=== PATIENT | male | born 1935 | race Caucasian/White ===

== ENCOUNTER 2018-07-02 04:27 | Inpatient (IN) | payer MEDICARE ==
[~2018-07-02] VITALS: Ht 167.6 cm; Wt 78.0 kg
[2018-07-02] MEDS: MORPHINE SULFATE INJ 2 MG/ML DISP.SYRIN IV ONE ×2 (01:15→05:15)
--- NOTE | 2018-07-02 04:30 | NUR ---
IV INITIATED LEFT AC 18G. LABS DRAWN FROM SITE. INTACT AND PATENT. IV PLACED ON SALINE LOCK.
--- NOTE | 2018-07-02 04:30 | NUR ---
PT BIBRA COMPLAINING OF ABDOMINAL PAIN X1 HOUR. PT C/O NAUSEA, DENIES VOMITTING OR DIARRHEA. PT DENIES SOB, CHEST PAIN. PT AAOX4. SKIN WARM AND INTACT, RESPIRATIONS EVEN AND UNLABORED. NO ACUTE DISTRESS NOTED AT THIS TIME. PT PLACED ON CONTINUOUS MONITORING. WAITING MD EVALUATION
--- NOTE | 2018-07-02 05:03 | NUR ---
MD AT BEDSIDE FOR EVALUATION
--- NOTE | 2018-07-02 05:09 | NUR ---
AT BEDSIDE WITH ULTRASOUND
--- NOTE | 2018-07-02 05:10 | NUR ---
UNABLE TO OBTAIN URINE SAMPLE AT THIS TIME, MD MCDUFFIE
[2018-07-02] MEDS ORDERED: MORPHINE SULFATE INJ 4 MG/ML DISP.SYRIN ONE ×2 (05:11→06:35)
[2018-07-02] MEDS ORDERED: ONDANSETRON HCL/PF 4 MG/2 ML VIAL ONE (05:11)
[2018-07-02 05:19] LABS: BASOPHILS % (AUTO) 0.4 % (0.0-2.0); EOSINOPHILS % (AUTO) 3.3 % (0.0-6.0); HEMATOCRIT 41 % (39-51); HEMOGLOBIN 13.3 g/dL (13.5-17.5); LYMPHOCYTES # (AUTO) 2.1 /CMM (0.8-4.8); LYMPHOCYTES % (AUTO) 20.8 % (20.0-44.0); MEAN CORPUSCULAR HGB CONC 33 g/dl (31.0-36.0); MEAN CORPUSCULAR VOLUME 92 fL (80-96); MONOCYTES # (AUTO) 0.9 /CMM (0.1-1.30); MONOCYTES % (AUTO) 9.2 % (2.0-12.0); NEUTROPHILS # (AUTO) 6.8 /CMM (1.8-8.9); NEUTROPHILS % (AUTO) 66.3 % (43.0-81.0); PLATELET COUNT (AUTO) 278 /CMM (150-450); RED BLOOD CELL COUNT(AUTO) 4.41 MIL/uL (4.5-6.0); WHITE BLOOD COUNT (AUTO) 10.2 K/uL (4.3-11.0)
[2018-07-02] MEDS ORDERED: IV NS 0.9% 250 ML IV ONE (05:21)
[2018-07-02] MEDS ORDERED: IOHEXOL-300 100 ML VIAL IV ONE (05:21)
[2018-07-02] MEDS ORDERED: CT SWABBABLE VALVE TRANS SET 1 EA INFUS.SET MC ONE (05:21)
[2018-07-02] MEDS ORDERED: IV NS 0.9% 500 ML BAG IV ONE (05:30)
[2018-07-02] MEDS ORDERED: ONDANSETRON HCL/PF - ER 4 MG/2 ML VIAL IV ONE (05:30)
[2018-07-02 05:35] LABS: ALANINE AMINOTRANSFERASE 28 U/L (12-78); ALBUMIN 3.5 g/dL (3.4-5.0); ALKALINE PHOSPHATASE 98 U/L (46-116); ASPARTATE AMINOTRANSFERASE 19 U/L (15-37); BILIRUBIN,DIRECT 0.1 mg/dL (0.0-0.2); BILIRUBIN,TOTAL 0.4 mg/dL (0.2-1.0); CALCIUM, SERUM 8.8 mg/dL (8.5-10.1); CARBON DIOXIDE 25 mmol/L (21-32); CHLORIDE 107 mmol/L (98-107); CREATININE 1.4 mg/dL (0.6-1.3); GLUCOSE 123 mg/dL (74-106); LIPASE 122 U/L (73-393); POTASSIUM 3.7 mmol/L (3.5-5.1); SODIUM SERUM 142 mmol/L (136-145); TOTAL PROTEIN, SERUM 6.5 g/dL (6.4-8.2); UREA NITROGEN, BLOOD 27 mg/dL (7-18)
[2018-07-02 05:36] LABS: TROPONIN I < 0.017 ng/mL (0.00-0.056)
--- NOTE | 2018-07-02 05:45 | NUR ---
MD AWARE OF BUN AND CREATININE RESULTS. CALLED RADIOLOGY TO BRING PT TO CT
--- NOTE | 2018-07-02 05:50 | NUR ---
PT BROUGHT BY RADIOLOGY FOR CT
--- NOTE | 2018-07-02 06:04 | NUR ---
PT RETURNED FROM CT
[2018-07-02] MEDS ORDERED: MORPHINE SULFATE INJ 2 MG/ML DISP.SYRIN IV ONE (06:30)
--- NOTE | 2018-07-02 06:30 | NUR ---
URINE COLLECTED. CALLED LAB FOR LICENSED PHYSICAL THERAPIST
[2018-07-02 06:42] LABS: APPEARANCE,URINE CLEAR (CLEAR); BILIRUBIN,URINE NEGATIVE (NEGATIVE); BLOOD, URINE TRACE-INTA Ery/uL (NEGATIVE); COLOR,URINE YELLOW (YELLOW); KETONES,URINE NEGATIVE (NEGATIVE); LEUKOCYTE ESTERASE ,URINE NEGATIVE (NEGATIVE); NITRITE, URINE NEGATIVE (NEGATIVE); PROTEIN,URINE NEGATIVE (NEGATIVE); UGLUCOSE NEGATIVE (NEGATIVE); UROBILINOGEN,URINE 0.2 EU/dL (0.2)
[2018-07-02 06:50] LABS: BACTERIA,URINE Rare /HPF (None Seen); SQUAMOUS EPITHELIAL CELL,UR Rare /HPF (None Seen); WBC,URINE 0-2 /HPF (0-3)
[2018-07-02] MEDS ORDERED: PIPERACILLIN /TAZOBACTAM 3.375 G in IV D5W 50 ML IV ONE (07:30)
[2018-07-02] MEDS ORDERED: ATOR40TA PO (07:37)
[2018-07-02] MEDS ORDERED: DILT240T12 PO (07:37)
[2018-07-02] MEDS ORDERED: TERA5CAP4 PO (07:37)
[2018-07-02] MEDS ORDERED: OLME20TA13 PO (07:37)
--- NOTE | 2018-07-02 07:40 | NUR ---
Updated with plan of care. Awaiting bed assignment. Family at bedside
[2018-07-02] MEDS ORDERED: ASPI-1169 PO (07:50)
--- NOTE | 2018-07-02 08:30 | NUR ---
Pt going to [phone]. Pt and daughter (She) made aware. NKE/Hand off to primary RN-Minor. Transfer to floor per kerrie by YULISSA Parker in stable condition
[2018-07-02] MEDS ORDERED: IV NS 0.9% 1,000 ML IV PRN (08:57)
[2018-07-02] MEDS ORDERED: ACETAMINOPHEN 325 MG TABLET PO PRN (09:00)
[2018-07-02] MEDS ORDERED: ASPIRIN 81 MG TAB.CHEW PO SCH (09:00)
[2018-07-02] MEDS ORDERED: ONDANSETRON HCL/PF 4 MG/2 ML VIAL IVP PRN (09:00)
[2018-07-02] MEDS ORDERED: MAGNESIUM HYDROXIDE 30 ML UDC PO PRN (09:00)
[2018-07-02] MEDS ORDERED: ZOLPIDEM TARTRATE 5 MG TABLET PO PRN (09:00)
[2018-07-02] MEDS ORDERED: Z GUARD REMEDY 2 OZ OINT TP PRN (09:00)
[2018-07-02] MEDS ORDERED: MAG HYDROX/AL HYDROX/SIMETH 30 ML UDC PO PRN (09:00)
[2018-07-02] MEDS ORDERED: MORPHINE SULFATE INJ 2 MG/ML DISP.SYRIN IV PRN (09:00)
[2018-07-02] MEDS ORDERED: MORPHINE SULFATE INJ 4 MG/ML DISP.SYRIN IV ONE (09:30)
--- NOTE | 2018-07-02 09:46 | NUR ---
MS RN NOTES PATIENT SEEN AND EXAMINED BY DR. SARKAR. WITH NEW ORDER FOR STAT HIDA SCAN AND MORPHINE SULFATE 4MG IV X 1 DOSE NOW. VERIFIED INFORMED CONSENT OBTAINED BY MD FROM PATIENT. ORDERS NOTED AND CARRIED OUT. NUCLEAR MEDICINE AWARE. PHARMACY MADE AWARE. WILL CONTINUE TO MONITOR
--- NOTE | 2018-07-02 10:06 | NUR ---
MS RN NOTES PATIENT WITH C/O NAUSEA. NO VOMITING PRESENT. REVIEWED PREVIOUS MEDICATIONS GIVEN AT ER. ZOFRAN IV LAST GIVEN AT 0515. PATIENT WITH ORDER FROM DR. WELLS FOR ZOFRAN 4MG IV Q6 PRN. DR. WELLS PRESENT AT UNIT AND MADE AWARE THAT LAST ZOFRAN IV GIVEN [address] WELLS GAVE OK TO ADMINISTER ZOFRAN 4MG IV NOW. MEDICATION ADMINISTERED ORDERED. WILL CONTINUE TO MONITOR
--- NOTE | 2018-07-02 10:08 | NUR ---
MS RN NOTES PATIENT ADMITTED TO UNIT. REPORT RECEIVED FROM RONNIE FONG. PATIENT ARRIVED AT UNIT VIA GURNEY, ACCOMPANIED BY DAUGHTER JOCELIN. PATIETN AWAKE, ALERT AND ORIENTED X 4. VERBALLY RESPONSIVE AND RESPONDS TO VERBAL AND TACTILE STIMULI. BREATHING EVEN AND UNLABORED. NO SOB OR ACUTE DISTRESS NOTED. PATIENT UNDER MEDICAL SUPERVISION OF DR. WELLS. PRESENT AT UNIT AND AWARE OF PATIENT ARRIVAL. PATIENT AND DAUGHTER INTRODUCED AND ORIENTED TO STAFF, NURSING STAFF, MEAL TIMES AND MENU SYSTEM, CALL LIGHT SYSTEM. WILL CONTINUE TO MONITOR. BED LOCKED AND IN LOW POSITION. BILATERAL UPPER SIDE RAILS UP AND LOCKED. CALL LIGHT WITHIN EASY REACH
[2018-07-02] MEDS: IV NS 0.9% 1,000 ML IV PRN (11:23)
[2018-07-02] MEDS ORDERED: PIPERACILLIN /TAZOBACTAM 4.5 G in IV D5W 50 ML IV SCH (12:00)
[2018-07-02] MEDS: PIPERACILLIN /TAZOBACTAM 2.25 G in IV D5W 50 ML IV SCH ×3 (12:06→23:15)
[2018-07-02] MEDS: LOSARTAN POTASSIUM 50 MG TABLET PO SCH (12:07)
[2018-07-02] MEDS: DILTIAZEM HCL CD 240 MG PO SCH (12:07)
[2018-07-02] MEDS: ENOXAPARIN SODIUM 40 MG/0.4 ML DISP.SYRIN SQ SCH (12:08)
[2018-07-02 16:00] VITALS: BP 163/86
--- NOTE | 2018-07-02 16:07 | NUR ---
KARI ; HIDA SCAN WAS COMPLETED:TECH:RB.
[2018-07-02] MEDS ORDERED: CEFTRIAXONE 1 G VIAL ONE (18:29)
--- NOTE | 2018-07-02 19:15 | NUR ---
MS RN NOTES PATIENT RESTING INSIDE ROOM. AWAKE, ALERT AND ORIENTED. VERBALLY RESPONSIVE AND RESPONDS TO VERBAL AND TACTILE STIMULI. BREATHING EVEN AND UNLABORED. NO SOB OR ACUTE DISTRESS NOTED. DENIES ANY PAIN OR DISCOMFORT. IV INTACT AND PATENT. ENDORSED TO INCOMING SHIFT FOR CALIN. BED LOCKED AND IN LOW POSITION. BILATERAL UPPER SIDE RAILS UP AND LOCKED. CALL LIGHT WITHIN EASY REACH
--- NOTE | 2018-07-02 19:30 | NUR ---
RECEIVED PATIENT IN BED AWAKE, AO X, 3; ABLE TO MAKE NEEDS KNOWN. NO ACUTE DISTRESS NOTED. MONITORED FOR PAIN. IV SITE PATENT, INTACT; IVF INFUSING ORDERED. SAFETY REMINDERS GIVEN. ON LOW BED WITH BILATERAL UPPER SIDE RAILS UP. CALL SCHMIDT WITHIN EASY REACH. WILL CONTINUE TO MONITOR.
[2018-07-02 19:35] LABS: IRON, SERUM 59 ug/dl (50-175); TOTAL IRON BINDING CAPACITY 288 ug/dl (250-450)
[2018-07-02 19:49] LABS: FERRITIN 49 ng/mL (8-388)
[2018-07-02 20:00] VITALS: BP 144/88
[2018-07-02] MEDS ORDERED: NA PHOS,M-B/NA PHOS,DI-BA 1 EA ENEMA RC PRN (20:30)
[2018-07-02] MEDS: PANTOPRAZOLE 40 MG VIAL IV SCH (21:06)
[2018-07-02] MEDS: POLYETHYLENE GLYCOL 3350 17 GM POWD.PACK PO SCH (21:09)
[2018-07-02] MEDS: HYDROCODONE/APAP 10/325MG 1 EA TABLET PO PRN (21:17)
[2018-07-02 21:28] LABS: BILIRUBIN,DIRECT 0.1 mg/dL (0.0-0.2); BILIRUBIN,TOTAL 0.5 mg/dL (0.2-1.0)
[2018-07-02] MEDS ORDERED: ATORVASTATIN 40 MG TABLET PO SCH (22:00)
[2018-07-03] VITALS (12 sets, daily range): BP systolic 104–154; BP diastolic 56–83
[2018-07-03] MEDS: IV NS 0.9% 1,000 ML IV PRN (00:49)
[2018-07-03] MEDS: PIPERACILLIN /TAZOBACTAM 2.25 G in IV D5W 50 ML IV SCH ×3 (05:21→18:47)
--- NOTE | 2018-07-03 06:13 | NUR ---
PATIENT AWAKE, SITTING UP IN BED. RESPIRATIONS EVEN. PATIENT JUST FINISHED TAKING A SHOWER INDEPENDENTLY. RETORT UNLOADER WAITED OUTSIDE OF DOOR FOR SAFETY. DUE MEDS GIVEN WITH NO ASE NOTED. NEEDS ATTENDED. SAFETY PRECAUTIONS AND COMFORT MEASURES IN PLACE. WILL GIVE REPORT TO DAY SHIFT FOR CONTINUITY OF CARE.
--- NOTE | 2018-07-03 06:16 | NUR ---
PATIENT ASLEEP, EASILY AROUSABLE. RESPIRATIONS EVEN. NO SIGNS OF PAIN NOTED. DUE MED GIVEN WITH NO ASE NOTED. NEEDS ATTENDED. KEPT CLEAN, DRY, AND COMFORTABLE. SAFETY PRECAUTIONS AND COMFORT MEASURES IN PLACE. WILL GIVE REPORT TO DAY SHIFT FOR CONTINUITY OF CARE. Addendum: 07/03/18 at 0617 by NAKLU LOBATO RN WRONG PATIENT; DISREGARD
--- NOTE | 2018-07-03 07:20 | NUR ---
MS/RN OPENING NOTE PATIENT IS RECEIVED IN BED AWAKE. ALERT AND ORIENTED X3. IN ROOM AIR AND DENIES SOB. RESPIRATION REGULAR AND UNLABORED. DENIES PAIN. PATIENT IN NO APPARENT DISTRESS. HYPOACTIVE BOWEL SOUNDS IN ALL FOUR QUADRATS. PATIENT STATED PASSING BO. ABDOMEN SOFT AND NON-DISTENDED. LAC G 18 PATENT AND NORMAL SALINE INFUSING AT 125ML/HR. NO S/S INFILTRATIONS NOTED. BED LOW AND LOCKED. SIDE RAILS UP X3. CALL LIGHT WITHIN REACH. WILL CONTINUE TO MONITOR.
[2018-07-03] MEDS ORDERED: PANTOPRAZOLE 40 MG TABLET.DR PO SCH (07:30)
[2018-07-03 07:35] LABS: EOSINOPHILS % (AUTO) 0.1 % (0.0-6.0); HEMATOCRIT 39 % (39-51); HEMOGLOBIN 13.1 g/dL (13.5-17.5); LYMPHOCYTES % (AUTO) 5.8 % (20.0-44.0); MEAN CORPUSCULAR HGB CONC 33 g/dl (31.0-36.0); MEAN CORPUSCULAR VOLUME 93 fL (80-96); MONOCYTES # (AUTO) 1.8 /CMM (0.1-1.30); MONOCYTES % (AUTO) 10.5 % (2.0-12.0); NEUTROPHILS # (AUTO) 14.2 /CMM (1.8-8.9); NEUTROPHILS % (AUTO) 83.6 % (43.0-81.0); PLATELET COUNT (AUTO) 264 /CMM (150-450); RDW COEFFICIENT OF VARIATION 13.3 (11.5-15.0); RED BLOOD CELL COUNT(AUTO) 4.24 MIL/uL (4.5-6.0)
[2018-07-03 07:51] LABS: ALANINE AMINOTRANSFERASE 29 U/L (12-78); ALBUMIN 3.1 g/dL (3.4-5.0); ALKALINE PHOSPHATASE 96 U/L (46-116); ASPARTATE AMINOTRANSFERASE 19 U/L (15-37); BILIRUBIN,DIRECT 0.1 mg/dL (0.0-0.2); BILIRUBIN,TOTAL 0.6 mg/dL (0.2-1.0); CALCIUM, SERUM 8.4 mg/dL (8.5-10.1); CARBON DIOXIDE 23 mmol/L (21-32); CHLORIDE 104 mmol/L (98-107); CREATININE 1.6 mg/dL (0.6-1.3); GLUCOSE 126 mg/dL (74-106); MAGNESIUM 1.7 mg/dL (1.8-2.4); PHOSPHORUS 2.9 mg/dL (2.5-4.9); POTASSIUM 3.9 mmol/L (3.5-5.1); SODIUM SERUM 137 mmol/L (136-145); TOTAL PROTEIN, SERUM 6.1 g/dL (6.4-8.2); UREA NITROGEN, BLOOD 17 mg/dL (7-18)
[2018-07-03 07:56] LABS: CHOLESTEROL 113 mg/dL (<200); HDL CHOLESTEROL 45 mg/dL (40-60); LDL 58 mg/dL (0-99); THYROID STIMULATING HORMONE 2.877 uIU/mL (0.358-3.74); TRIGLYCERIDES 113 mg/dL (30-150)
[2018-07-03] MEDS: LOSARTAN POTASSIUM 50 MG TABLET PO SCH (09:00)
[2018-07-03] MEDS: DILTIAZEM HCL CD 240 MG PO SCH (09:00)
[2018-07-03] MEDS: ENOXAPARIN SODIUM 40 MG/0.4 ML DISP.SYRIN SQ SCH (09:00)
[2018-07-03] MEDS: Magnesium 1GM/D5W 100ML PREMIX 100 ML IV SCH ×2 (09:11→10:39)
--- NOTE | 2018-07-03 09:42 | NUR ---
MS/RN NOTE LOVENOX DUE AT 0900 NOT ADMINISTERED DUE TO PATIENT IS SCHEDULED FOR SURGERY.
--- NOTE | 2018-07-03 12:35 | NUR ---
MS/RN NOTE PER DIRECTOR RELIGIOUS EDUCATION PHYLICIA TYPE AND SCREEN ORDER STAT IS OBTAINED. NOTED AND CARRIED OUT.
[2018-07-03] MEDS ORDERED: MIDAZOLAM HCL 2 MG/2ML VIAL ONE (15:37)
[2018-07-03] MEDS ORDERED: FENTANYL PF 100MCG/2ML AMPUL ONE (15:37)
[2018-07-03] MEDS ORDERED: FENTANYL PF 250MCG/5ML AMPUL ONE (15:37)
[2018-07-03] MEDS ORDERED: ROCURONIUM BROMIDE 50 MG/5 ML ONE (15:38)
[2018-07-03] MEDS ORDERED: METOCLOPRAMIDE HCL 10 MG/2 ML VIAL ONE (15:38)
[2018-07-03] MEDS ORDERED: LIDOCAINE HCL/PF 1% 30 ML SDV ONE (15:39)
[2018-07-03] MEDS ORDERED: BUPIVACAINE MPF 0.5% W/EPI INJ 30 ML VIAL ONE (15:39)
[2018-07-03] MEDS ORDERED: MORPHINE SULFATE INJ 2 MG/ML DISP.SYRIN IV PRN (18:00)
[2018-07-03] MEDS ORDERED: HYDROCODONE/APAP 5/325MG 1 EACH TABLET PO PRN (18:00)
--- NOTE | 2018-07-03 18:35 | NUR ---
MS/RN NOTE PATIENT IS BACK FROM OR. PATIENT ALERT AND ORIENTED X3 AND DROWSY. DENIES SOB. RESPIRATION REGULAR AND UNLABORED. PATIENT IS PLACED ON OXYGEN AT 2L/MIN. DENIES PAIN. LAPAROSCOPIC OCCASIONS (3) ON ABDOMEN WITH DRESSING. NO ACTIVE BLEEDING NOTED. ABDOMEN DISTENDED. LAC G 18 PATENT AND IV FLUIDS INFUSING WITH NO S/S INFILTRATION. MARCEL DRAIN IN PLACE. VITAL SIGNS CHECKED. BED LOW AND LOCKED. SIDE RAILS UP X3. CALL LIGHT WITHIN REACH. WILL ENDORSE TO FIRE ENGINE PUMP OPERATOR.
--- NOTE | 2018-07-03 19:30 | NUR ---
RN NOTE; PT IN BED SLEEPY. DOZING INTERMITTENTLY. BREATHING EVENLY . NO SOB ON SUPPLEMENTAL O2. O2 SAT:97%. VSS. SKIN WARM AND DRY. SX SITES X3 INTACT WITH GLUE. GP DRAINAGE DRAINING SEROSANGUINEOUS FLUID. ICE BAG IN PLACE. PT W/ C/O MILD DISCOMFORT WILL BE MEDICATED ACCORDINGLY WHEN PT IS MORE AWAKE. PT WAS STARTED ON ICE CHIPS NEEDS ATTENDED, BED LOW LOCKED. CALL LIGHT WITHIN REACH. WILL CONT TO MONITOR
[2018-07-03] MEDS: PANTOPRAZOLE 40 MG VIAL IV SCH (21:00)
--- NOTE | 2018-07-03 21:00 | NUR ---
S/P LAP VIDYA . REMAINED STABLE . VSS. PAIN TOLERATED WELL. ON O2 AT 3LPM VIA NC . NO SOB. NO DISTRESS, MARCEL IN PLACE DRAINING WELL. FOOT PUMP IN PLACE, ON ONGOING CLOSE OBSERVATION . WILL CONT TO MONITOR,
[2018-07-03] MEDS: POLYETHYLENE GLYCOL 3350 17 GM POWD.PACK PO SCH (22:02)
[2018-07-03] MEDS: HYDROCODONE/APAP 10/325MG 1 EA TABLET PO PRN (22:24)
--- NOTE | 2018-07-03 22:24 | NUR ---
NORCO GIVEN ORDERED FOR C/O PAIN ON RIGHT ABDOMEN . WILL CONT TO MONITOR ,
[2018-07-04] VITALS: BP 133/69
[2018-07-04] MEDS: PIPERACILLIN /TAZOBACTAM 2.25 G in IV D5W 50 ML IV SCH ×4 (00:23→17:29)
[2018-07-04] MEDS: IV NS 0.9% 1,000 ML IV PRN ×2 (00:23→17:46)
[2018-07-04 04:38] VITALS: BP 136/71
--- NOTE | 2018-07-04 06:40 | NUR ---
PT IN BED DOZING INTERMITTENTLY. BREATHING EVENLY. NO SOB. NO ACUTE EVENT DURING THE NIGHT. CURRENT DIET OF CLEAR LIQ KORI WELL. PAIN UNDER CONTROL. MARCEL IN PLACE DRAINING WELL. ON ONGOING IVF HYDRATION KORI WELL. NEEDS ATTENDED, BED LOW LOCKED. CALL LIGHT WITHIN REACH. WILL CONT TO MONITOR AND WILL ENDORSE TO AM SHIFT FOR CALIN.
[2018-07-04 08:00] VITALS: BP 155/83
[2018-07-04] MEDS: ENOXAPARIN SODIUM 40 MG/0.4 ML DISP.SYRIN SQ SCH (08:43)
[2018-07-04] MEDS: DILTIAZEM HCL CD 240 MG PO SCH (08:43)
--- NOTE | 2018-07-04 09:56 | NUR ---
RN OPENING NOTES RECEIVED PT IN BED, AWAKE A/OX4, BREATHING EVEN AND UNLABORED OMN RA AND TOLERATING. INFUSING NS @125ML/HR VIA LAC IV ACCESS, PATENT AND FLUSHING. ACCOMPANIED BY DAUGHTER AT BEDSIDE, BED IN LOWEST LOCKED POSITION, DAVID LIGHT WITHIN REACH, WILL CONTINUE TO MONITOR
[2018-07-04] MEDS: HYDROCODONE/APAP 10/325MG 1 EA TABLET PO PRN ×2 (10:22→20:30)
[2018-07-04 10:37] LABS: HEMATOCRIT 40 % (39-51); HEMOGLOBIN 13.3 g/dL (13.5-17.5); LYMPHOCYTES # (AUTO) 0.9 /CMM (0.8-4.8); LYMPHOCYTES % (AUTO) 4.4 % (20.0-44.0); MEAN CORPUSCULAR HGB CONC 33 g/dl (31.0-36.0); MEAN CORPUSCULAR VOLUME 93 fL (80-96); MONOCYTES # (AUTO) 1.8 /CMM (0.1-1.30); MONOCYTES % (AUTO) 8.9 % (2.0-12.0); NEUTROPHILS # (AUTO) 17.8 /CMM (1.8-8.9); NEUTROPHILS % (AUTO) 86.7 % (43.0-81.0); PLATELET COUNT (AUTO) 280 /CMM (150-450); RDW COEFFICIENT OF VARIATION 13.1 (11.5-15.0); RED BLOOD CELL COUNT(AUTO) 4.33 MIL/uL (4.5-6.0); WHITE BLOOD COUNT (AUTO) 20.5 K/uL (4.3-11.0)
[2018-07-04 10:55] LABS: CALCIUM, SERUM 8.7 mg/dL (8.5-10.1); CARBON DIOXIDE 24 mmol/L (21-32); CHLORIDE 105 mmol/L (98-107); CREATININE 1.7 mg/dL (0.6-1.3); GLUCOSE 112 mg/dL (74-106); MAGNESIUM 2.7 mg/dL (1.8-2.4); POTASSIUM 4.1 mmol/L (3.5-5.1); SODIUM SERUM 140 mmol/L (136-145); UREA NITROGEN, BLOOD 20 mg/dL (7-18)
--- NOTE | 2018-07-04 11:41 | NUR ---
RN MS NOTES PT AWAKE, ALERT AND ORIENTED, ABLE TO WALK ALONG THE HALLWAY WITH ASSISTANCE USING A WALKER, PAIN MEDICATION GIVEN FOR PAIN MANAGEMENT, MARCEL DRAIN IN PLACE, DRAINING SEROSANGUENOUS FLUID, NO BLEEDING AT DRAIN SITE, DRESSING INTACT, CLEAN AND DRY, PT SEEN BY ROSETTE WHATLEY PROGRESSIVE ASSEMBLER AND FITTER, PLAN OF CARE DISCUSSED WITH PT AND DAUGHTER, VERBALIZED UNDERSTANDING, TOLERATING CURRENT DIET WELL.
[2018-07-04 16:00] VITALS: BP 124/70
--- NOTE | 2018-07-04 17:54 | NUR ---
RN NOTES SEEM BY GI AND SURGERY RETAIL MARKETING MANAGER, ZOSYN CHANGED TO MEROPENEM
--- NOTE | 2018-07-04 17:55 | NUR ---
AJIT NOTES INFORMED JORDI ZENG OF PATIENT STATUS, ORDERED ABDOMINAL US Addendum: 07/04/18 at 1949 by EZRA PERALTA RN PLS DISREGARD ABOVE NOTE, ORDER IS FOR A DIFFERENT PATIENT.
--- NOTE | 2018-07-04 18:10 | NUR ---
RN CLOSING NOTES PT IN BED AWAKE, ALERT AND ORIENTED X4, BREATHING EVEN AND UNLABORED ON RA AND TOLERATING. NO REDNESS OR SWELLING ON OR AROUND INCISION SITE, NO SIGNS OF INFECTION. NO COMPLAINT OF PAIN OR DISCOMFORT AT THE TIME. ALL VITALS STABLE, NO SIGNIFICANT CHANGES DURING SHIFT. BED IN LOWEST LOCKED POSITION, CALL LIGHT WITHIN REACH AT ALL TIMES, DAUGHTER AT BEDSIDE. WILL ENDORSE TO NIGHT NURSE FOR CALIN.
--- NOTE | 2018-07-04 18:34 | NUR ---
50 ML COLLECTED FROM SHEELA DRAIN
--- NOTE | 2018-07-04 19:40 | NUR ---
RN MS NOTES PT REQUESTED IF HE CAN SHOWER, PER PRIYA PRODUCTION TEAM MANAGER, OK TO SHOWER, COVER MARCEL SITE, CLEANSE WITH NS AND CHANGE DRESSING DAILY, ASSISTED PT TO SHOWER, ASSISTED BACK TO BED, DRESSING AT MARCEL DRAIN CHANGED.
[2018-07-04 20:00] VITALS: BP 131/69
[2018-07-04] MEDS: PANTOPRAZOLE 40 MG VIAL IV SCH (20:30)
[2018-07-04] MEDS: MEROPENEM 500 MG in IV NS 0.9% 50 ML IV SCH (20:30)
[2018-07-04] MEDS: POLYETHYLENE GLYCOL 3350 17 GM POWD.PACK PO SCH (21:04)
--- NOTE | 2018-07-05 06:20 | NUR ---
MS RN NOTES AWAKE & RESPONSIVE. NOT IN ANY DISTRESS. NO SOB NOTED. DENIES ANY PAIN OR DISCOMFORT AT THIS TIME. WITH ABD DRESSING C/D/I. MARCEL DRAIN KEPT ON NEGATIVE PRESSURE, DRAINING SCANTY AMOUNT OF PINKISH OUTPUT. CALL LIGHT WITHIN REACH. BED IN LOWEST POSITION. SR UP X2 FOR SAFETY. WILL ENDORSE TO NEXT SHIFT.
[2018-07-05 07:19] LABS: BASOPHILS % (AUTO) 0.1 % (0.0-2.0); EOSINOPHILS % (AUTO) 0.4 % (0.0-6.0); HEMATOCRIT 36 % (39-51); LYMPHOCYTES # (AUTO) 1.3 /CMM (0.8-4.8); LYMPHOCYTES % (AUTO) 7.9 % (20.0-44.0); MEAN CORPUSCULAR HGB CONC 34 g/dl (31.0-36.0); MEAN CORPUSCULAR VOLUME 93 fL (80-96); MONOCYTES # (AUTO) 1.7 /CMM (0.1-1.30); MONOCYTES % (AUTO) 10.6 % (2.0-12.0); NEUTROPHILS # (AUTO) 13.2 /CMM (1.8-8.9); PLATELET COUNT (AUTO) 265 /CMM (150-450); RDW COEFFICIENT OF VARIATION 13.3 (11.5-15.0); RED BLOOD CELL COUNT(AUTO) 3.83 MIL/uL (4.5-6.0); WHITE BLOOD COUNT (AUTO) 16.3 K/uL (4.3-11.0)
[2018-07-05 07:28] LABS: CALCIUM, SERUM 8.5 mg/dL (8.5-10.1); CARBON DIOXIDE 24 mmol/L (21-32); CHLORIDE 108 mmol/L (98-107); CREATININE 1.4 mg/dL (0.6-1.3); GLUCOSE 99 mg/dL (74-106); POTASSIUM 4.2 mmol/L (3.5-5.1); SODIUM SERUM 142 mmol/L (136-145); UREA NITROGEN, BLOOD 24 mg/dL (7-18)
[2018-07-05 08:00] VITALS: BP 129/61
--- NOTE | 2018-07-05 08:00 | NUR ---
MS RN AM NOTES RECEIVED PATIENT IN BED AWAKE. ALERT AND ORIENTED X4. BREATHING EVEN AND UNLABORED. NO SOB ON ROOM AIR.IV ACCESS INTACT AND PATENT.PT REFUSED TO HAVE INFUSED IVF AT THIS TIME SAYING HE WANTS TO WALK IN THE HALLWAY OFTEN.WITH MARCEL INTACT DRAINING MODERATE SEROSANGUINOUS DRAINAGE.DENIES ANY PAIN OR DISTRESS.SKIN DRY AND WARM TO TOUCH. AFEBRILE. ALL NEEDS ATTENDED TO. SAFETY MEASURES IN PLACE. CALL LIGHT WITHIN REACH. WILL CONTINUE TO MONITOR.
[2018-07-05] MEDS: DILTIAZEM HCL CD 240 MG PO SCH (08:43)
[2018-07-05] MEDS: MEROPENEM 500 MG in IV NS 0.9% 50 ML IV SCH ×2 (08:43→20:32)
[2018-07-05] MEDS: ENOXAPARIN SODIUM 40 MG/0.4 ML DISP.SYRIN SQ SCH (08:44)
--- NOTE | 2018-07-05 11:44 | NUR ---
UNABLE TO INCREASE MERREM IV FROM 12 HRS TO 8 HRS DUE TO CREATINE CLEARANCE PER PHARMACY.
[2018-07-05 16:00] VITALS: BP 130/84
[2018-07-05] MEDS: HYDROCODONE/APAP 5/325MG 1 EACH TABLET PO PRN (16:22)
--- NOTE | 2018-07-05 18:29 | NUR ---
EXPLAINED TO THE PT THE IMPORTANCE OF DRINKING LOTS OF FLUIDS AND HOOKING BACK THE IVF NS FOR HYDRATION.PT FINALLY AGREED.PT AMBULATES AROUND THE HALLWAY OFTEN WITH THE DAUGHTERS.
[2018-07-05] MEDS: IV NS 0.9% 1,000 ML IV PRN (18:41)
--- NOTE | 2018-07-05 19:35 | NUR ---
MS RN NOTES RECEIVED ON BED A/O X4,S/P LAP VIDYA BY DR JAMES MenchacaWITH THREE SMALL ABDOMINAL INCISION,NO DRESSING ON NAVEL AREA BUT SKIN REDNESS NOTED.WITH MARCEL DRAIN IN PLACE WITH SANGUINOUS OUTPUT.IVF NS AT 125ML/HR RATE IN PROGRESS VIA IV PUMP ON RFA.FAMILY MEMBERS AT BEDSIDE.MIGUEL PAIN AT THE MOMENT.CALL LIGHT IN REACH,NEEDS ANTICIPATED.
[2018-07-05 20:00] VITALS: BP 151/79
[2018-07-05] MEDS: PANTOPRAZOLE 40 MG VIAL IV SCH (20:27)
--- NOTE | 2018-07-05 20:30 | NUR ---
MS RN NOTES DUE PROTONIX 40MG IV GIVEN SCHEDULED.
[2018-07-05] MEDS: POLYETHYLENE GLYCOL 3350 17 GM POWD.PACK PO SCH (22:09)
[2018-07-05] MEDS ORDERED: POLYETHYLENE GLYCOL 3350 17 GM POWD.PACK PO PRN (23:00)
--- NOTE | 2018-07-06 01:30 | NUR ---
MS RN NOTES AWAKE,ASSISTED TO THE TOILET. BACK TO BED,REQUESTED TO HOLD IVF THIS TIME.WILL RESUME AT 5 AM.
--- NOTE | 2018-07-06 06:30 | NUR ---
MS RN NOTES HAD BM X3,IVF RESUMED THIS TIME.PAIN TOLERABLE THRU OUT SHIFT.AFEBRILE.CALL LIGHT IN REACH,NEEDS ATTENDED.WILL ENDORSE TO FRANCOIS FONG FOR CALIN.
[2018-07-06 06:50] LABS: EOSINOPHILS % (AUTO) 2.5 % (0.0-6.0); HEMATOCRIT 36 % (39-51); HEMOGLOBIN 12.1 g/dL (13.5-17.5); LYMPHOCYTES # (AUTO) 1.1 /CMM (0.8-4.8); LYMPHOCYTES % (AUTO) 9.4 % (20.0-44.0); MEAN CORPUSCULAR HGB CONC 34 g/dl (31.0-36.0); MEAN CORPUSCULAR VOLUME 93 fL (80-96); MONOCYTES # (AUTO) 1.1 /CMM (0.1-1.30); NEUTROPHILS % (AUTO) 78.1 % (43.0-81.0); PLATELET COUNT (AUTO) 263 /CMM (150-450); RDW COEFFICIENT OF VARIATION 13.1 (11.5-15.0); RED BLOOD CELL COUNT(AUTO) 3.89 MIL/uL (4.5-6.0); WHITE BLOOD COUNT (AUTO) 11.5 K/uL (4.3-11.0)
[2018-07-06] MEDS: HYDROCODONE/APAP 5/325MG 1 EACH TABLET PO PRN (06:55)
--- NOTE | 2018-07-06 06:55 | NUR ---
MS RN NOTES C/O ABDOMINAL PAIN SCALE OF 4/10,NORCO 5/325MG,1TAB PO GIVEN PER PATIENT REQUEST.
[2018-07-06 07:18] LABS: CALCIUM, SERUM 8.4 mg/dL (8.5-10.1); CARBON DIOXIDE 25 mmol/L (21-32); CHLORIDE 107 mmol/L (98-107); CREATININE 1.2 mg/dL (0.6-1.3); GLUCOSE 97 mg/dL (74-106); POTASSIUM 4.1 mmol/L (3.5-5.1); SODIUM SERUM 140 mmol/L (136-145); UREA NITROGEN, BLOOD 20 mg/dL (7-18)
[2018-07-06 08:00] VITALS: BP 160/80
--- NOTE | 2018-07-06 08:00 | NUR ---
MS AJIT AM NOTES RECEIVED PATIENT IN BED AWAKE. ALERT AND ORIENTED X4. BREATHING EVEN AND UNLABORED. NO SOB ON ROOM AIR.IV ACCESS INTACT AND PATENT.PT REFUSED TO HAVE INFUSED IVF AT THIS TIME SAYING HE WANTS TO WALK IN THE HALLWAY OFTEN.WITH MARCEL INTACT WITH NO DRAINAGE.DENIES ANY PAIN OR DISTRESS.SKIN DRY AND WARM TO TOUCH. AFEBRILE. NEEDS ATTENDED TO. SAFETY MEASURES IN PLACE. CALL LIGHT WITHIN REACH. WILL CONTINUE TO MONITOR.
[2018-07-06] MEDS: MEROPENEM 500 MG in IV NS 0.9% 50 ML IV SCH (08:42)
[2018-07-06] MEDS: DILTIAZEM HCL CD 240 MG PO SCH (08:43)
[2018-07-06] MEDS: ENOXAPARIN SODIUM 40 MG/0.4 ML DISP.SYRIN SQ SCH (08:45)
[2018-07-06] MEDS ORDERED: DOCUSATE SODIUM 100 MG CAPSULE PO SCH (09:00)
[2018-07-06 09:36] VITALS: BP 140/69
--- NOTE | 2018-07-06 11:30 | NUR ---
KARRI POWERS OF DR ALEENA RAMIREZ,SAW THE PT AND REMOVED THE MARCEL DRAIN WITH MILD BLEEDING.PT TOLERATED WELL.PT DENIES ANY PAIN OR DISTRESS.MARCEL SITE CARE TEACHING GIVEN TO THE PT/FAMILY.DRESSING CLEAN AND DRY.WILL MONITOR.
--- NOTE | 2018-07-06 15:00 | NUR ---
DISCHARGED HOME WITH HOME HEALTH-[facility] FOLLOW UP .WITH STABLE V/S.DENIES ANY PAIN OR DISTRESS.PT REFUSED TO HAVE HIS MARCEL SITE PHOTO TO BE TAKEN BECAUSE DRESSING WAS STILL CLEAN,DRY AND NEW.IV H/L TO RFA REMOVED WITHOUT BLEEDING NOTED.D/C HOME ACCOMPANIED BY HIS DAUGHTER,CHEY.DISCHARGE INSTRUCTIONS AND PRESCRIPTION GIVEN TO THE PT.
== END 2018-07-06 14:55 | disposition home health service (06) | DRG 417 ==
LOC: ER 04:28 → MED 08:27
PROC: 0FB04ZX Excision of Liver, Percutaneous Endoscopic Approach, Diagnostic (ICD-10-PCS; 2018-07-03)
PROC: 0WQF4ZZ Repair Abdominal Wall, Percutaneous Endoscopic Approach (ICD-10-PCS; 2018-07-03)
PROC: 0FT44ZZ Resection of Gallbladder, Percutaneous Endoscopic Approach (ICD-10-PCS; principal; 2018-07-03 15:00)
DX: K81.0 Acute cholecystitis (principal); N17.0 Acute kidney failure with tubular necrosis; K82.1 Hydrops of gallbladder; D72.829 Elevated white blood cell count, unspecified; K43.9 Ventral hernia without obstruction or gangrene; I35.0 Nonrheumatic aortic (valve) stenosis; K59.00 Constipation, unspecified; E83.42 Hypomagnesemia; I10 Essential (primary) hypertension; E78.5 Hyperlipidemia, unspecified; M75.101 Unspecified rotator cuff tear or rupture of right shoulder, not specified as traumatic; D64.9 Anemia, unspecified; E86.0 Dehydration; R73.9 Hyperglycemia, unspecified; K42.9 Umbilical hernia without obstruction or gangrene; K57.30 Diverticulosis of large intestine without perforation or abscess without bleeding; Z87.11 Personal history of peptic ulcer disease; K76.89 Other specified diseases of liver; Z96.641 Presence of right artificial hip joint
CPT/HCPCS: 36415; 71045-TC; 74018; 76705-TC; 78226; 80048-TC; 80053-TC; 80061-TC; 80076-TC; 81000-TC; 82247-TC; 82248-TC; 82728-TC; 83540-TC; 83605-TC; 83690-TC; 83735-TC; 84100-TC; 84443-TC; 84484-TC; 85025-TC; 86850-TC; 87081-TC; 88304-TC; 88307-TC; 88313-TC; 93307-TC; A4216; A4606; A6402; A6403; A9537; C9113; J0696; J1100; J1650; J2185; J2250; J2270; J2405; J2543; J2704; J2765; J3010; J3475; J3490; J7030; J7040; J7050; J7060; Q9967; Z7610

== ENCOUNTER 2022-09-28 09:52 | Outpatient (CLI) | payer MEDICARE ==
[~2022-09-28 09:52] MED LIST: ASPI-1169 PO; ATOR40TA PO; DILT240T12 PO; OLME20TA13 PO
== END 2022-09-28 23:59 | disposition home or self-care (01) ==
LOC: CT 09:52
PROVIDERS: ATTEND Internal Medicine
DX: M16.12 Unilateral primary osteoarthritis, left hip (principal); M25.552 Pain in left hip
CPT/HCPCS: 73700-TC